=== PATIENT | female | born 1985 | race Caucasian/White ===

== ENCOUNTER 2018-06-03 10:29 | Emergency (ER) | payer OTHER, SELFPAY ==
[2018-06-03 10:42] VITALS: BP 113/78; PULSE 80; RESP 14; TEMP 36.3; O2SAT 100
[2018-06-03] MEDS: diphenhydrAMINE 25 MG TABLET 50 MG PO (10:51)
--- NOTE | 2018-06-03 11:16 | PC.NURSE ---
Cannot evaluate pts yeys as are swollen shut
--- NOTE | 2018-06-03 11:18 | ED_ITS ---
HPI - Eye Problem General Chief complaint: Eye Problems Stated complaint: 'EYES ARE SWOLLEN SHUT' Time Seen by Provider: 06/03/18 11:18 Source: patient Mode of arrival: ambulatory Limitations: no limitations History of Present Illness HPI Narrative: Patient is a 32-year-old female with a history of eczema here for evaluation of a rash and swelling around her eyes and on her face. She states it has been going on for the past couple days. She has been using cortisone cream at home (not around her eyes) for the past couple days without much improvement. No fevers. Patient denies any vision changes however she has decreased in being able to see secondary to the swelling of her eyelids. No vomiting. Related Data Previous Rx's Medication Instructions Recorded cephalexin [Keflex] 500 mg PO QID 5 Days #20 cap 06/03/18 prednisone 60 mg PO DAILY 7 Days #21 tab 06/03/18 Allergies Allergy/AdvReac Type Severity Reaction Status Date / Time No Known Drug Allergies Allergy Verified 06/03/18 10:46 Review of Systems Constitutional Denies fever(s) and Denies headache(s) Eyes Denies blurry vision, Denies change in vision, Denies diplopia, Reports eye discharge, Reports irritation, Denies itchy eyes and Denies loss of vision Comments: Swelling on the ice ENT Ears, Nose, Mouth, and Throat: Denies vertigo, Denies dizziness, Denies headache (s), Denies lip swelling, Denies disequilibrium, Denies sinus pain, Denies sinus pressure, Denies sore throat, Denies throat swelling and Denies tongue swelling Cardiovascular Denies dyspnea Respiratory Denies dyspnea and Denies wheezing Integumentary/Breasts Reports dry skin, Reports pruritus, Reports lesions, Reports erythema, Reports rash, Denies skin ulcer and Reports sores Neurologic Denies vertigo, Denies dizziness, Denies headache(s), Denies loss of vision and Denies disequilibrium Hematologic/Lymphatic Denies easy bleeding and Denies easy bruising Allergic/Immunologic Denies urticaria, Denies itchy eyes, Denies lip swelling, Denies throat swelling , Denies tongue swelling and Denies wheezing PFSH Medical History Eczema (Acute) Surgical History No pertinent past surgical history (Acute) Social History marital status: Smoking Status: Never smoker Exam Initial Vital Signs Initial Vital Signs: Vital Signs Temperature 97.3 F L 06/03/18 10:42 Pulse Rate 80 06/03/18 10:42 Respiratory Rate 14 06/03/18 10:42 Blood Pressure 113/78 06/03/18 10:42 Pulse Oximetry 100 06/03/18 10:42 Const General: cooperative, well developed, well groomed and No acute distress Orientation: alert, awake and oriented x3 HENMT Head: normal to inspection and atraumatic Mouth: oral mucosae normal and tongue normal Teeth and gingiva: dentition normal and dentition not poor Throat: posterior oropharynx normal Eyes Pupils: PERRL EOM: EOM intact bilaterally Other: CC skin section for further description of eyes Skin Other: Patient with dry skin especially around the eyes in the upper lower eyelids. Does have crusting. Also has well defined dry patchy red areas on the cheeks and forehead is a in the neck extending down to the upper chest. Neuro General: alert, awake and oriented x3 Extrem General: No edema Psych Appearance: grossly normal and well kempt Course Orders Ordered: Discontinued Medications Diphenhydramine HCl (Benadryl) 50 mg PO NOW ONE Stop: 06/03/18 10:52 Last Admin: 06/03/18 10:51 Dose: 50 mg Vital Signs - 8 hr 06/03/18 10:42 Temperature 97.3 F L Pulse Rate 80 Respiratory Rate 14 Blood Pressure 113/78 Pulse Oximetry 100 MDM - Eye Problem MDM Narrative Medical decision making narrative: Patient without any respiratory distress. Clinical exam is not consistent with anaphylaxis. Patient's eyes themselves look well. No vision changes. All of her symptoms it to be the skin around the eyes. There is redness and dry skin. I do suspect that this is a flare of her eczema with a superficial infection. Will start on a course of some steroids. We did discuss the proper use of moisturizing creams. Will also send home on a antibiotic for the presumed superinfection. Patient was given return precautions. She expressed understanding and agreement with plan. Discharge Plan Departure Patient Disposition: Home Clinical Impression: Rash, Cellulitis Discharge Date/Time: 06/03/18 12:31 Interventions: ED Discharge Assessment Last Done: 06/03/18 12:30 Instructions: DI for Rash Activity Restrictions/Additional Instructions: start the steroids and the antibiotics and take them likely discussed. I do recommend you avoid placing any other creams/ lotion on her face except for lotions that have no fragrances or colors. Call your primary care doctor on Wednesday for a follow-up. Return to the emergency department for any new or worsening symptoms. Prescriptions: New prednisone 20 mg tablet 60 mg PO DAILY 7 Days Qty: 21 RF: 0 cephalexin [Keflex] 500 mg capsule 500 mg PO QID 5 Days Qty: 20 RF: 0
--- NOTE | 2018-06-03 11:34 | PC.NURSE ---
Pt with excema history. Red allergic appearing rash to chest but pt states no new meds or possible allergens
[2018-06-03 12:30] VITALS: BP 122/72; PULSE 78; RESP 14; O2SAT 98
== END 2018-06-03 12:31 | disposition home or self-care (01) ==
PROVIDERS: Emergency Provider Emergency Medicine
DX: L03.211 Cellulitis of face (principal)
CPT/HCPCS: 99282; 99283